=== PATIENT | male | born 1995 | race Caucasian/White ===

== ENCOUNTER 2021-12-20 15:39 | Emergency (ER) | payer SELFPAY ==
--- OUTSIDE RECORDS SUMMARY | 2021-12-20 15:41 | XMS REPORT | Continuity of Care Document ---
:1995 Author Organization [facility] Address [address] [place] [address] Care Team Providers Name Role Phone UNKNOWN Primary Care Physician Unavailable CHEYENNE Attending Clinician Unavailable CHEYENNE Admitting Clinician Unavailable Problems This patient has no known problems. Allergies, Adverse Reactions, Alerts This patient has no known allergies or adverse reactions. Medications This patient has no known medications. Procedures This patient has no known procedures. Results Test Description Test Time Test Comments Results Result Comments Source Valproic Acid (Depakote),S 2017-01-15 07:08:00 Test Item Value Reference Range Interpretation Comme nts Valproic Acid (test code = VALP) 76.6 ug/mL 50.0-100.0 N RPR, [id number] 11:24:00 Test Item Value Reference Range Interpretation Comments RPR (test code = RPR) Non-Reactive Non-Reactive N Thyroid Stimulating Hormone (TSH)2017-01-11 09:29:00 Test Item Value Reference Range Interpretation Comments TSH (test code = TSH) 2.87 mIU/mL 0.270-4.200 N Alcohol/Ethanol, [id number] 20:57:00 Test Item Value Reference Range Interpretation Comments Alcohol, Ethyl <0.01 g/dL 0.00-0.01 N Intoxicated 0.080 (test code = ETOH) g/dL or m ore Comprehensive Metabolic [id number] 20:57:00 Test Item Value Reference Range Interpretation Comments Sodium (test code = 138 mmol/L 135-145 N NA) Potassium (test 4.3 mmol/L 3.5-5.1 N code = K) Chloride (test code 97 mmol/L 98-105 L = CL) Carbon Dioxide 30 mmol/L 22-29 H (test code = CO2) Glucose (test code 92 mg/dL 70-115 N = GLU) Blood Urea Nitrogen 12 mg/dL 6-20 N (test code = BUN) Creatinine (test 1.1 mg/dL 0.7-1.2 N code = CREAT) Calcium (test code 9.8 mg/dL 8.3-10.5 N = CA) Prot Total (test 7.2 g/dL 6.4-8.3 N code = TP) Albumin (test code 4.7 g/dL 3.5-5.2 N = ALB) A/G Ratio (test 1.9 Ratio code = AGRATIO) Globulin (test code 2.5 2.9-3.1 L = GLOB) Bili Total (test 0.4 mg/dL 0.1-0.9 N code = TBIL) Alk Phos (test code 59 U/L 40-129 N = APHOS) AST (test code = 42 U/L 1-40 H AST) ALT (test code = 52 U/L 1-41 H ALT) BUN/Creatinine 10.9 Ratio (test code = BCRATIO) Anion Gap (test 11 mmol/L 7-16 N code = AGAP) Estimated GFR (test >60 eGFR (es timated code = GFR) mL/min/1.73m2 Glomerular Vinicio tration Rate) is an est imated value,calculate d from the patient's s katy creatinine usin g the MDRD equation.I t is NOT the patient 's actual GFR. The eGFR provides a more clinicallyusefu l measure of kidn ey disease than se rum creatinine alone.This calculation prema es sex and race into account, if the informationis provided. If th e race is not provided , and the patient isAfrican-Ameri can, multiply by 1.2 12. If sex is not prov ided, and thepatient is female, multipl y by 0.742. Results for patients <18 ye ars ofage have not been validated by th e MDRD study and tammy d be interpretedwith caution.eGFR Re sult Interpretation: eGFR > or = 60 is in t he Normal RangeeGF R < 60 may mean kidney diseaseeGFR < 1 5 may mean kidney failureRange s recommended by the National Kidney Foundation,http ://nkd ep.nih.gov [id number] 20:57:00 Test Item Value Reference Range Interpretation Comments Amphetamine (test code Negative Negative N For d iagnostic purposes = AMPH) only, positive results should always b e assessedin conjunctionwith the patient's medic al history,clinica l examination and otherfindings.T o fulfill legal requirements, a more specific altern ate chemical method must be used inorder to obtain a Confirmed ольга lytical result. GC/MS i s the preferred confi rmatory method. Barbiturates (test Negative Negative N code = MARA) Benzodiazepine (test Negative Negative N code = MAGDALENA) Cocaine (test code = Negative Negative N COCA) Methadone (test code = Negative Negative N MTHD) Opiates (test code = Negative Negative N OPIA) PCP (test code = PCP) Negative Negative N Propoxyphene (test Negative Negative N code = PROPOX) THC (test code = THC) Negative Negative N Urinalysis [id number] 20:39:00 Test Item Value Reference Range Interpretation Comments Color (test code = COLOR) Yellow Yellow,Straw,Pl N yellow Clarity (test code = Clear Clear N CLAR) Specific [place] (test 1.015 1.001-1.035 N code = SPGR) pH (test code = PH) 7.0 5.0-9.0 N Ketone (test code = KET) Negative mg/dL Negative N Glucose (test code = Negative mg/dL Negative N GLUCUR) Protein (test code = Negative mg/dL Negative N PROT) Bilirubin (test code = Negative mg/dL Negative N BILI) Occult Blood (test code = Negative Negative N UDOB) Urobilinogen (test code = 1.0 mg/dL 0.2-1.0 N UROB) Nitrite (test code = NIT) Negative Negative N Leuk Esterase (test code Negative Negative N = LEUK) Micros Exam (test code = Not indicated MEXAM) CBC with [id number] 20:25:00 Test Item Value Reference Range Interpretation Comments WBC (test code = WBC) 6.4 K/cumm 4.4-10.5 N RBC (test code = RBC) 5.47 M/cumm 4.10-5.70 N Hemoglobin (test code = HGB) 16.0 gm/dL 13.4-17.4 N Hematocrit (test code = HCT) 48.5 % 38.7-52.0 N MCV (test code = MCV) 88.7 fL 80-100 N MCH (test code = MCH) 29.3 pg 27.0-32.5 N MCHC (test code = MCHC) 33.1 g/dL 32.0-37.5 N RDW (test code = RDW) 13.9 % 11.5-14.5 N Platelet Count (test code = 264 K/cumm 140-440 N PLTCT) MPV (test code = MPV) 7.0 fL Diff Method (test code = DIFFM) Auto Neutrophil (test code = NEUT) 62.1 % 36-70 N Lymphocyte (test code = LYMPH) 27.1 % 12-44 N Monocyte (test code = MONO) 7.4 % 0-11 N Eosinophil (test code = EOS) 2.7 % 0-7 N Basophil (test code = BASO) 0.6 % 0-2 N Neutro Abs (test code = ANEUT) 4.0 K/cumm 1.6-7.4 N Lymph Abs (test code = ALYMPH) 1.7 K/cumm 0.5-4.6 N Pierce Abs (test code = AMONO) 0.5 K/cumm 0.0-1.2 N Eos Abs (test code = AEOS) 0.17 K/cumm 0.00-0.74 N Baso Abs (test code = ABASO) 0.0 K/cumm 0.00-0.21 N
--- NOTE | 2021-12-20 20:15 | EDPHYS ---
Physician Documentation [facility] Name: Alex Griggs Jr Age: 26 yrs Sex: Male : 1995 Arrival Date: 12/20/2021 Time: 15:40 Bed 28 Private MD: ED Physician Zohaib Perry HPI: 12/20 20:11 This 26 yrs old Male presents to ER via Ambulatory with complaints of Penile Problem. pm1 20:11 The patient presents with Rash and irritation to glans of penis. Onset: The pm1 symptoms/episode began/occurred 3 day(s) ago. Modifying factors: The symptoms are alleviated by nothing, the symptoms are aggravated by nothing. Associated signs and symptoms: Pertinent negatives: abdominal pain, dysuria, fever. Severity of symptoms: in the emergency department the symptoms are unchanged. The patient has experienced a previous episode, many years ago. The patient has not recently seen a physician. Historical: - Allergies: 17:14 No Known Allergies; aa5 - PMHx: 17:14 "Anger"; Anxiety; Depression; aa5 - Immunization history:: Adult Immunizations unknown. - Social history:: Smoking status: Patient denies any tobacco usage or history of. ROS: 20:11 Constitutional: Negative for fever, chills, and weight loss, Cardiovascular: Negative pm1 for chest pain, palpitations, and edema, Respiratory: Negative for shortness of breath, cough, wheezing, and pleuritic chest pain, Abdomen/GI: Negative for abdominal pain, nausea, vomiting, diarrhea, and constipation. 20:11 MS/Extremity: Negative for injury and deformity. 20:11 : Negative for urinary symptoms, burning with urination, difficulty urinating, penile pain, testicular pain 20:11 Skin: Positive for rash, of the head of penis. 20:11 All other systems are negative. Exam: 20:11 Constitutional: This is a well developed, well nourished patient who is awake, alert, pm1 and in no acute distress. Head/Face: Normocephalic, atraumatic. 20:11 Skin: Warm, dry with normal turgor. Normal color with no rashes, no lesions, and no evidence of cellulitis. 20:11 Cardiovascular: Exam negative for acute changes, Rate: normal, Rhythm: regular, Pulses: no pulse deficits are appreciated. 20:11 Respiratory: Exam negative for acute changes, respiratory distress, shortness of breath. 20:11 : Male external genitalia: Patient is not circumisioned. swelling: is not appreciated, ulceration, is not present. 20:11 Skin: Appearance: normal except for affected area, consistent with Candidiasis, on the head of penis. Vital Signs: 17:17 BP 129 / 78; Pulse 54; Resp 16 S; Temp 98.8(TE); Pulse Ox 100% on R/A; Weight 93.89 kg aa5 (R); Height 6 ft. 1 in. (185.42 cm) (R); 20:37 BP 131 / 77; Pulse 60; Resp 18; Pulse Ox 100% on R/A; as6 17:17 Body Mass Index 27.31 (93.89 kg, 185.42 cm) aa5 MDM: 19:50 Patient medically screened. pm1 20:05 Data reviewed: vital signs. Data interpreted: Pulse oximetry: on. pm1 20:11 Counseling: I had a detailed discussion with the patient and/or guardian regarding: the pm1 historical points, exam findings, and any diagnostic results supporting the discharge/admit diagnosis, the need for outpatient follow up, a family practitioner, a urologist, to return to the emergency department if symptoms worsen or persist or if there are any questions or concerns that arise at home. Administered Medications: No medications were administered Disposition: 20:56 Co-signature as Attending Physician, Zohaib Perry MD I agree with the assessment and kdr plan of care. Disposition Summary: 12/20/21 20:14 Discharge Ordered Location: Home pm1 Problem: new pm1 Symptoms: have improved pm1 Condition: Stable pm1 Diagnosis - Balanitis pm1 Followup: pm1 - With: Emergency Department - When: As needed - Reason: Worsening of condition Followup: pm1 - With: Private Physician - When: 2 - 3 days - Reason: Recheck today's complaints, Continuance of care, Re-evaluation by your physician Discharge Instructions: - Discharge Summary Sheet pm1 - Balanitis pm1 Forms: - Medication Reconciliation Form pm1 - Thank You Letter pm1 - Antibiotic Education pm1 - Prescription Opioid Use pm1 Prescriptions: - Clotrimazole 1 % Topical Cream - Apply to affected area 1 application by TOPICAL route every 12 hours; 15 gram; pm1 Refills: 0, Product Selection Permitted Signatures: Zohaib Perry MD MD kdr Neela Coats, RN RN aa5 Howard Cameron, ESTELITA ORDER PLANNER pm1
--- NOTE | 2021-12-20 20:15 | ER ---
Nurse's Notes [facility] Name: Alex Griggs Jr Age: 26 yrs Sex: Male : 1995 Arrival Date: 12/20/2021 Time: 15:40 Bed 28 Private MD: Diagnosis: Balanitis Presentation: 12/20 17:14 Chief complaint: Chief complaint: Patient states: "I am having blotches on my penis for aa5 about a week and I've had them before and they just give me medicine for it". 17:17 Coronavirus screen: At this time, the client does not indicate any symptoms associated aa5 with coronavirus-19. Ebola Screen: No symptoms or risks identified at this time. Initial Sepsis Screen: Does the patient meet any 2 criteria? No. Patient's initial sepsis screen is negative. Does the patient have a suspected source of infection? No. Patient's initial sepsis screen is negative. Risk Assessment: Do you want to hurt yourself or someone else? Patient reports no desire to harm self or others. Onset of symptoms was December 2021. 17:17 Method Of Arrival: Ambulatory aa5 17:17 Acuity: YOLY 5 aa5 Historical: - Allergies: 17:14 No Known Allergies; aa5 - PMHx: 17:14 "Anger"; Anxiety; Depression; aa5 - Immunization history:: Adult Immunizations unknown. - Social history:: Smoking status: Patient denies any tobacco usage or history of. Screenin:37 Abuse screen: Denies threats or abuse. Denies injuries from another. Nutritional as6 screening: No deficits noted. Tuberculosis screening: No symptoms or risk factors identified. Fall Risk None identified. Assessment: 20:37 Reassessment: see triage assessmnet. as6 Vital Signs: 17:17 BP 129 / 78; Pulse 54; Resp 16 S; Temp 98.8(TE); Pulse Ox 100% on R/A; Weight 93.89 kg aa5 (R); Height 6 ft. 1 in. (185.42 cm) (R); 20:37 BP 131 / 77; Pulse 60; Resp 18; Pulse Ox 100% on R/A; as6 17:17 Body Mass Index 27.31 (93.89 kg, 185.42 cm) aa5 ED Course: 15:40 Patient arrived in ED. am2 17:14 Arm band placed on. aa5 17:19 Triage completed. aa5 19:28 Deandre Valles, RN is Primary Nurse. as6 19:30 Howard Cameron NP is PSYCHIATRICP. pm1 19:30 Zohaib Perry MD is Attending Physician. pm1 20:37 Patient has correct armband on for positive identification. Placed in gown. Bed in low as6 position. Call light in reach. Side rails up X2. Pulse ox on. NIBP on. Door closed. Noise minimized. Warm blanket given. 20:37 No provider procedures requiring assistance completed. Patient did not have IV access as6 during this emergency room visit. Administered Medications: No medications were administered Medication: 20:37 VIS not applicable for this client. as6 Outcome: 20:14 Discharge ordered by . pm1 20:37 Discharged to home ambulatory. as6 20:37 Condition: stable 20:37 Discharge instructions given to patient, Instructed on discharge instructions, follow up and referral plans. medication usage, Demonstrated understanding of instructions, follow-up care, medications, Prescriptions given X 1. 20:37 Patient left the ED. as6 Signatures: Neela Coats RN RN aa5 Howard Cameron NP CUSTOMER TRAINING SPECIALIST pm1 Angi Rice am2 Deandre Valles RN RN as6 Corrections: (The following items were deleted from the chart) 17:19 17:14 Chief complaint: aaMoni castro 17:20 17:17 Temp 98.8F Temporal; 93.89 kg Reported; Height 6 ft. 1 in. Reported; BMI: 27.3; aa5 aa5
[2021-12-20] MEDS ORDERED: FLUCONAZOLE 100 MG TAB ONE (20:41)
[2021-12-20 20:48] VITALS: TEMP 98.8; O2SAT 100
[2021-12-20 20:50] VITALS: BP 131/77
== END 2021-12-20 20:37 | disposition home or self-care (01) ==
LOC: ER 15:39
DX: N48.1 Balanitis (principal)
CPT/HCPCS: 99283

== ENCOUNTER 2022-12-28 14:05 | Emergency (ER) | payer SELFPAY ==
--- OUTSIDE RECORDS SUMMARY | 2022-12-28 14:07 | XMS REPORT | Continuity of Care Document ---
:1995 Author Organization [facility] t Address [address] [place] [address] Care Team Providers Name Role Phone UNKNOWN, REFFERING Primary Care Physician Unavailable BUZZ QUINN Attending Clinician Unavailable BUZZ QUINN Admitting Clinician Unavailable Problems This patient has [...] = VALP) 76.6 ug/mL 50.0-100.0 N RPR, [id number] 11:24:00 Test Item Value Reference Range Interpretation Comments RPR (test code = RPR) Non-Reactive Non-Reactive N Thyroid Stimulating Hormone (TSH)2017-01-11 09:29:00 Test Item Value Reference Range Interpretation Comments TSH (test code = TSH) 2.87 mIU/mL 0.270-4.200 N Alcohol/Ethanol, [id number] 20:57:00 Test Item Value Reference Range Interpretation Comments Alcohol, Ethyl <0.01 g/dL 0.00-0.01 N Intoxicated 0 .080 g/dL (test code = ETOH) or more Comprehensive Metabolic [id number] 20:57:00 Test Item Value Reference Range Interpretation [...] validated by th e MDRD study and shoul d be interpretedwith caution.eGFR Re sult Interpretation: eGFR > or = 60 is in t he Normal RangeeGF R < 60 may mean kidney diseaseeGFR < 1 5 may mean kidney failureRange s recommended by the National Kidney Foundation,http ://nkd ep.nih.gov [id number] 20:57:00 Test Item Value Reference Range Interpretation [...] code = THC) Negative Negative N Urinalysis [id number] 20:39:00 Test Item Value Reference Range Interpretation Comments Color (test code = COLOR) Yellow Yellow,Straw,Pl N yellow Clarity (test code = Clear Clear N CLAR) Specific [place] (test 1.015 1.001-1.035 N code = SPGR) [...] code = Not indicated MEXAM) CBC with [id number] 20:25:00 Test Item Value Reference Range Interpretation [...] code = ALYMPH) 1.7 K/cumm 0.5-4.6 N Dale Abs (test code = AMONO) 0.5 K/cumm 0.0-1.2 N Eos Abs (test code = AEOS) 0.17 K/cumm 0.00-0.74 N Baso Abs (test code = ABASO) 0.0 K/cumm 0.00-0.21 N
--- NOTE | 2022-12-28 15:24 | EDPHYS ---
Physician Documentation [facility] Name: Alex Griggs Jr Age: 27 yrs Sex: Male : 1995 Arrival Date: 12/28/2022 Time: 14:05 Bed 12 Private MD: ED Physician Ted Neil HPI: 12/28 15:59 This 27 yrs old Male presents to ER via Ambulatory with complaints of Cough, Finger kb infection. 15:59 The patient or guardian reports cough, that is intermittent. Onset: The kb symptoms/episode began/occurred 4 day(s) ago. Severity of symptoms: At their worst the symptoms were moderate, in the emergency department the symptoms are unchanged. Modifying factors: The symptoms are alleviated by nothing, the symptoms are aggravated by nothing. Associated signs and symptoms: Pertinent positives: rhinorrhea, sore throat. The patient has not experienced similar symptoms in the past. The patient has not recently seen a physician. Pt reports cough, sore throat, and swelling to left middle finger for 4-5 days. Historical: - Allergies: 14:11 No Known Allergies; ld1 - PMHx: 14:11 "Anger"; Anxiety; Depression; ld1 - PSHx: 14:11 None; ld1 - Immunization history:: Adult Immunizations up to date, Client reports receiving the 2nd dose of the Covid vaccine. - Social history:: Smoking status: Patient denies any tobacco usage or history of. Patient/guardian denies using alcohol. ROS: 16:02 Constitutional: Negative for fever, chills, and weight loss. kb 16:02 ENT: Positive for rhinorrhea, sore throat. 16:02 Respiratory: Positive for cough. 16:02 Skin: Positive for abscess. 16:02 All other systems are negative. Exam: 16:01 Constitutional: This is a well developed, well nourished patient who is awake, alert, kb and in no acute distress. Head/Face: Normocephalic, atraumatic. ENT: Moist Mucous membranes Cardiovascular: Regular rate and rhythm with a normal S1 and S2. No gallops, murmurs, or rubs. No pulse deficits. Respiratory: Respirations even and unlabored. No increased work of breathing. Talking in full sentences Abdomen/GI: Soft, non-tender. No distention MS/ Extremity: Pulses equal, no cyanosis. Neurovascular intact. Full, normal range of motion. Neuro: Awake and alert, GCS 15, oriented to person, place, time, and situation. Moves all extremities. Normal gait. 16:01 Skin: abscess, that is small, of the dorsal aspect of distal phalanx of left middle finger, with drainage, with fluctuance. Vital Signs: 14:10 Temp 98.1(TE); Weight 90.72 kg; Height 6 ft. 2 in. ; Pain 0/10; ld1 14:13 BP 127 / 84; Pulse 71; Resp 18; Temp 98.1; Pulse Ox 97% ; Height 6 ft. 2 in. ; Pain ld1 0/10; 14:13 Body Mass Index 25.68 (90.72 kg, 187.96 cm) ld1 14:10 Pain Scale: Adult ld1 14:13 Pain Scale: Adult ld1 Procedures: 16:01 I \\T\\ D: 18G needle used to push cuticle back from nail, drained small amount of purulent kb drainage. . MDM: 14:09 Patient medically screened. kb 15:58 Differential Diagnosis: Upper Respiratory Infection Other flu, covid, strep, allergic kb rhinitis, paronychia, abscess, cellulitis. Data reviewed: vital signs, nurses notes. Counseling: I had a detailed discussion with the patient and/or guardian regarding: the historical points, exam findings, and any diagnostic results supporting the discharge/admit diagnosis, lab results, the need for outpatient follow up, a family practitioner, to return to the emergency department if symptoms worsen or persist or if there are any questions or concerns that arise at home. 16:02 ED course: Pt educated on warm water soaks, completing antibiotics and follow up. kb Verbal understanding received. . 12/28 14:14 Order name: Flu; Complete Time: 15:23 kb 12/28 14:14 Order name: SARS-COV-2 RT PCR; Complete Time: 15:09 kb 12/28 14:14 Order name: Strep kb 12/28 14:57 Order name: Throat Culture EDMS Administered Medications: No medications were administered Disposition: 17:26 Co-signature as Attending Physician, Ted Neil MD I reviewed the patient's care rt provided by the Advanced Practice Provider and agree with the diagnosis and treatment plan. Disposition Summary: 12/28/22 15:24 Discharge Ordered Location: Home kb Condition: Stable kb Diagnosis - Acute upper respiratory infection, unspecified kb - Cutaneous abscess of left hand kb Followup: kb - With: Emergency Department - When: As needed - Reason: Worsening of condition Followup: kb - With: Private Physician - When: 2 - 3 days - Reason: Recheck today's complaints, Continuance of care, Re-evaluation by your physician Discharge Instructions: - Discharge Summary Sheet kb - Upper Respiratory Infection, Adult, [id number] kb - Paronychia, [id number] kb Forms: - Medication Reconciliation Form kb - Thank You Letter kb - Antibiotic Education kb - Prescription Opioid Use kb - [email or web address] kb Prescriptions: - Bactrim DS 800-160 mg Oral Tablet - take 1 tablet by ORAL route every 12 hours for 7 days; 14 tablet; Refills: 0, kb Product Selection Permitted Signatures: Dispatcher [employer] Maria E Talley, Justine Cordon RN RN ld1 Ted Neil MD MD rt
--- NOTE | 2022-12-28 15:24 | ER ---
Nurse's Notes [facility] Name: Alex Griggs Jr Age: 27 yrs Sex: Male : 1995 Arrival Date: 12/28/2022 Time: 14:05 Bed 12 Private MD: Diagnosis: Acute upper respiratory infection, unspecified;Cutaneous abscess of left hand Presentation: 12/28 14:10 Chief complaint: Patient states: coughing, throat pain. Left hand finger wound. ld1 Coronavirus screen: At this time, the client does not indicate any symptoms associated with coronavirus-19. Ebola Screen: No symptoms or risks identified at this time. Initial Sepsis Screen: Does the patient meet any 2 criteria? No. Patient's initial sepsis screen is negative. Does the patient have a suspected source of infection? No. Patient's initial sepsis screen is negative. Risk Assessment: Do you want to hurt yourself or someone else? Patient reports no desire to harm self or others. Onset of symptoms was December 28, 2022. 14:10 Method Of Arrival: Ambulatory ld1 14:10 Acuity: YOLY 4 ld1 Triage Assessment: 14:11 General: Appears in no apparent distress. comfortable, Behavior is calm, cooperative, ld1 appropriate for age. Pain: Denies pain. EENT: No signs and/or symptoms were reported regarding the EENT system. Neuro: Level of Consciousness is awake, alert, obeys commands, Oriented to person, place, time, situation. Cardiovascular: Capillary refill < 3 seconds Patient's skin is warm and dry. Respiratory: Airway is patent Respiratory effort is even, unlabored. GI: Abdomen is flat, non-distended. : No signs and/or symptoms were reported regarding the genitourinary system. Derm: No signs and/or symptoms reported regarding the dermatologic system. Musculoskeletal: No signs and/or symptoms reported regarding the musculoskeletal system. Historical: - Allergies: 14:11 No Known Allergies; ld1 - PMHx: 14:11 "Anger"; Anxiety; Depression; ld1 - PSHx: 14:11 None; ld1 - Immunization history:: Adult Immunizations up to date, Client reports receiving the 2nd dose of the Covid vaccine. - Social history:: Smoking status: Patient denies any tobacco usage or history of. Patient/guardian denies using alcohol. Screenin:12 [facility] ED Fall Risk Assessment (Adult) History of falling in the last 3 months, ld1 including since admission No falls in past 3 months (0 pts). Abuse screen: Denies threats or abuse. Denies injuries from another. Nutritional screening: No deficits noted. Tuberculosis screening: No symptoms or risk factors identified. Assessment: 14:12 Reassessment: See triage assessment. ld1 Vital Signs: 14:10 Temp 98.1(TE); Weight 90.72 kg; Height 6 ft. 2 in. ; Pain 0/10; ld1 14:13 BP 127 / 84; Pulse 71; Resp 18; Temp 98.1; Pulse Ox 97% ; Height 6 ft. 2 in. ; Pain ld1 0/10; 14:13 Body Mass Index 25.68 (90.72 kg, 187.96 cm) ld1 14:10 Pain Scale: Adult ld1 14:13 Pain Scale: Adult ld1 ED Course: 14:07 Patient arrived in ED. im 14:09 [facility] kb 14:09 Ted Neil MD is Attending Physician. kb 14:11 Triage completed. ld1 14:11 Arm band placed on right wrist. ld1 14:12 Patient has correct armband on for positive identification. Bed in low position. Call ld1 light in reach. Side rails up X2. Pulse ox on. NIBP on. Door closed. Noise minimized. Warm blanket given. 14:12 No provider procedures requiring assistance completed. Patient did not have IV access ld1 during this emergency room visit. 14:15 Strep Sent. ld1 14:15 SARS-COV-2 RT PCR Sent. ld1 14:15 Flu Sent. ld1 14:29 Celina Robles, RN is Primary Nurse. iw Administered Medications: No medications were administered Medication: 14:12 VIS not applicable for this client. ld1 Outcome: 15:24 Discharge ordered by . kb 15:29 Discharged to home ambulatory. mb9 15:29 Condition: stable 15:29 Discharge instructions given to patient, Instructed on discharge instructions, follow up and referral plans. medication usage, Demonstrated understanding of instructions, follow-up care, medications, Prescriptions given X 1. 15:30 Patient left the ED. mb9 Signatures: aMria E Horton FNP-C FNP-Celina Maciel RN RN iw Justine Hilario, RN RN ld1 [place], RN RN mb9 Alma Rosa Garcia
[2022-12-28 15:35] VITALS: TEMP 98.1
[2022-12-28 15:37] VITALS: BP 127/84; O2SAT 97
== END 2022-12-28 15:30 | disposition home or self-care (01) ==
LOC: ER 14:05
DX: J06.9 Acute upper respiratory infection, unspecified (principal); L02.512 Cutaneous abscess of left hand; Z20.822 Contact with and (suspected) exposure to COVID-19
CPT/HCPCS: 87070; 87081; 87635; 87804; 99283